=== PATIENT | male | born 1995 ===

== ENCOUNTER 2024-04-26 16:07 | Emergency (ER) | payer SELFPAY ==
[2024-04-26] MEDS ORDERED: Sodium Chloride 0.9% 10 ML Syringe FLUSH PRN (16:56)
[2024-04-26 17:07] LABS: BASOPHILS ABSOLUTE AUTO 0.05 K/uL (0.00-0.10); BASOPHILS PERCENT AUTO 0.6 % (0.1-1.3); EOSINOPHILS ABSOLUTE AUTO 0.45 K/uL (0.00-0.40); EOSINOPHILS PERCENT AUTO 5.8 % (0.0-5.4); HEMATOCRIT 43.3 % (38.4-49.7); IMMATURE GRAN PERCENT AUTO 0.3 % (0.0-0.7); LYMPHOCYTES PERCENT AUTO 29.6 % (11.4-47.7); MEAN CORPUSCULAR HEMOGLOBIN 28.4 pg (31.6-35.5); MEAN CORPUSCULAR HGB CONC 34.6 g/dL (31.6-35.5); MEAN CORPUSCULAR VOLUME 81.9 fL (81.4-99.0); MONOCYTES ABSOLUTE AUTO 0.81 K/uL (0.20-0.90); MONOCYTES PERCENT AUTO 10.4 % (3.3-12.6); NEUTROPHILS ABSOLUTE AUTO 4.14 K/uL (1.0-7.6); NEUTROPHILS PERCENT AUTO 53.3 % (40.0-78.1); PLATELET COUNT,PLT 322 K/uL (130-375); RED BLOOD CELL COUNT 5.29 M/uL (4.14-5.76); WHITE BLOOD CELL COUNT,WBC 7.8 K/uL (3.2-11.0)
[2024-04-26 17:08] LABS: IMMATURE GRAN ABSOLUTE AUTO 0.02 K/uL (0.00-0.23)
[2024-04-26 17:22] LABS: CALCIUM 9.4 mg/dL (8.5-10.1); CREATININE 1.2 mg/dL (0.8-1.3); EST CRCL DRUG DOSING (CG) 79.01 mL/min; POTASSIUM,K 4.6 mmol/L (3.6-5.2)
[2024-04-26 17:23] LABS: ANION GAP 7.6 mmol/L (5.0-14.0)
[2024-04-26] MEDS: Lactated Ringers 1,000 ML IV ONE (17:30)
== END 2024-04-26 18:54 | disposition home or self-care (01) ==
LOC: JP.ED 16:07
DX: K52.9 Noninfective gastroenteritis and colitis, unspecified (principal)
CPT/HCPCS: 36415; 80048; 83605; 85025; 87635; 96360; 99284; J7120; 99283; U0002